=== PATIENT | female | born 1995 ===

== ENCOUNTER → 2021-12-20 | Emergency (ER) | payer OTHER ==
[~2021-12-20] VITALS: Ht 160 cm; Wt 55.8 kg
== END | disposition home or self-care (01) ==
LOC: ER 01:18
DX: O9A.312 Physical abuse complicating pregnancy, second trimester (principal); Z3A.18 18 weeks gestation of pregnancy; Y07.9 Unspecified perpetrator of maltreatment and neglect

== ENCOUNTER 2022-01-20 09:46 | Outpatient (CLI) | payer OTHER | END 2022-01-20 11:05 | disposition home or self-care (01) | LOC: PRENATAL 09:46 | PROVIDERS: ATTEND Obstetrics & Gynecology Maternal & Fetal Medicine | DX: O35.0XX0 Maternal care for (suspected) central nervous system malformation in fetus, not applicable or unspecified (principal); O35.3XX0 Maternal care for (suspected) damage to fetus from viral disease in mother, not applicable or unspecified ==

== ENCOUNTER 2022-03-31 10:28 | Outpatient (CLI) | payer OTHER | END 2022-03-31 11:30 | disposition home or self-care (01) | LOC: PRENATAL 10:28 | PROVIDERS: ATTEND Obstetrics & Gynecology Maternal & Fetal Medicine | DX: O35.0XX0 Maternal care for (suspected) central nervous system malformation in fetus, not applicable or unspecified (principal); O36.8199 Decreased fetal movements, unspecified trimester, other fetus; O26.849 Uterine size-date discrepancy, unspecified trimester; Z3A.32 32 weeks gestation of pregnancy ==

== ENCOUNTER 2022-04-13 14:27 | Outpatient (CLI) | payer OTHER ==
[2022-04-13] MEDS ORDERED: PRENATAL TABLE1 EAC1 (15:32)
== END 2022-04-14 14:23 | disposition home or self-care (01) ==
LOC: OBS/DEL 14:27
PROVIDERS: ATTEND Obstetrics & Gynecology
DX: O47.03 False labor before 37 completed weeks of gestation, third trimester (principal); Z3A.35 35 weeks gestation of pregnancy; Z20.822 Contact with and (suspected) exposure to COVID-19

== ENCOUNTER 2022-04-26 13:30 | Inpatient (IN) | payer OTHER ==
[~2022-04-26] VITALS: Ht 160 cm; Wt 2.7 kg
[~2022-04-26 13:30] MED LIST: PRENATAL TABLE1 EAC1
== END 2022-05-12 12:27 | disposition home or self-care (01) | DRG 807 ==
LOC: LDR 05-09 15:17 → OB/GYN 05-10 11:52 → LDR 05-18 13:30
PROVIDERS: ADMIT Student in an Organized Health Care Education/Training Program; ATTEND Student in an Organized Health Care Education/Training Program
PROC: 4A1HXCZ Monitoring of Products of Conception, Cardiac Rate, External Approach (ICD-10-PCS; 2022-05-09)
PROC: 10E0XZZ Delivery of Products of Conception, External Approach (ICD-10-PCS; principal; 2022-05-10)
PROC: 0W8NXZZ Division of Female Perineum, External Approach (ICD-10-PCS; 2022-05-10)
DX: O80 Encounter for full-term uncomplicated delivery (principal); Z37.0 Single live birth; O99.820 Streptococcus B carrier state complicating pregnancy; Z3A.38 38 weeks gestation of pregnancy; Z20.822 Contact with and (suspected) exposure to COVID-19

== ENCOUNTER 2023-04-10 09:42 | Emergency (ER) | payer OTHER ==
[~2023-04-10] VITALS: Ht 160 cm; Wt 56.7 kg
[2023-04-10] MEDS ORDERED: CIPRO500 MG PO (13:13)
[2023-04-10] MEDS ORDERED: PEPCID AC20 MG PO (13:13)
== END 2023-04-10 13:30 | disposition home or self-care (01) ==
LOC: ER 09:42
DX: N39.0 Urinary tract infection, site not specified (principal); R19.7 Diarrhea, unspecified